=== PATIENT | male | born 1960 | race Native Hawaiian/Other Pacific Islander ===

== ENCOUNTER 2019-03-07 18:46 | Emergency (ER) | payer MEDICARE ==
--- NOTE | 2019-03-07 18:56 | Emergency Department Report ---
Blank Doc - Documentation Documentation: This is a 58-year-old male that presents with left arm pain and swelling. HX of shoulder. Denies any new injuries. This initial assessment/diagnostic orders/clinical plan/treatment(s) is/are subject to change based on patient's health status, clinical progression and re-assessment by fellow clinical providers in the ED. Further treatment and workup at subsequent clinical providers discretion. Patient/guardians urged not to elope from the ED as their condition may be serious if not clinically assessed and managed. Initial orders include: 1- Patient sent to [facility] for further evaluation and treatment 2- doppler US to left arm
[2019-03-07] MEDS ORDERED: IBUPROFEN PO ONE ×2 (18:57→19:00)
[2019-03-07] MEDS ORDERED: PERCOCET 5/325 PO ONE (21:12)
--- NOTE | 2019-03-07 22:48 | XRay Report ---
Left shoulder, 2 views INDICATION: Follow-up fracture FINDINGS: Comminuted fracture of the humeral neck and head with multiple fracture fragments seen with impaction, displacement and rotation. There is no dislocation seen. Ribs and scapula appear to be in tact. Signer Name: Ok Shelton MD Signed: 03/07/2019 10:44 PM Workstation Name: [id number]
--- NOTE | 2019-03-07 22:54 | Emergency Department Report ---
ED Upper Extremity Inj HPI - General Chief Complaint: Extremity Problem,Nontraumatic Stated Complaint: LFT ARM POSS BROKEN/PAIN Time Seen by Provider: 03/07/19 18:53 Source: patient Mode of arrival: Ambulatory Limitations: No Limitations - History of Present Illness Initial Comments: Patient is a 58-year-old male with no past medical history presents to the ED with complaint of worsening left shoulder pain for the last 3 weeks after he slipped on a carpet and fell down on the floor landing on his left arm and shoulder. Patient states that this injury occurred in [facility], and he was initially evaluated at the hospital in [place] and was advised that he had had a fracture of the left shoulder and was to follow-up with the orthopedic surgeon for further evaluation and surgery but the patient states that he lives locally in [facility] and opted to come home to a local orthopedic surgeon. The patient states that in the last 3 weeks he has been taking pain medications which she ran out of. Patient states that the pain has gotten worse in the last 3 days side that he has not been able to sleep patient denies chest pain, shortness of breath, dizziness, neck pain, head or neck injury, back pain, numbness and tingling of left arm, syncope or loss of consciousness. MD Complaint: Injury to:: left, shoulder -: Sudden, week(s) (3) Other Extremity Injury: Shoulder: Left (opain, fractured left shoulder) Other Injuries: none Place: home Severity scale (0 -10): 8 Improves With: none Worsens With: movement of extremity Context: fall, injury Associated Symptoms: denies other symptoms. denies: weakness, numbness, neck pain, suspects foreign body, nausea/vomiting Treatments Prior to Arrival: NSAIDS - Related Data Previous Rx's Medication Instructions Recorded Last Taken Type Cyclobenzaprine [Flexeril] 10 mg PO Q8H PRN #21 tablet 03/07/19 Unknown Rx HYDROcodone/APAP 7.5-325 [Reseda 1 each PO Q6HR PRN 3 Days #12 03/07/19 Unknown Rx 7.5/325] tablet Ibuprofen [Motrin] 600 mg PO Q8H PRN #24 tablet 03/07/19 Unknown Rx Allergies Allergy/AdvReac Type Severity Reaction Status Date / Time No Known Allergies Allergy Unverified 03/07/19 18:50 ED Review of Systems ROS: Stated complaint: LFT ARM POSS BROKEN/PAIN Other details as noted in HPI Constitutional: denies: chills, fever Eyes: denies: eye pain, eye discharge, vision change ENT: denies: ear pain, throat pain Respiratory: denies: cough, shortness of breath, wheezing Cardiovascular: denies: chest pain, palpitations Endocrine: no symptoms reported Gastrointestinal: denies: abdominal pain, nausea, diarrhea Genitourinary: denies: urgency, dysuria Musculoskeletal: arthralgia (right shoulder pain). denies: back pain, joint swelling Skin: denies: rash, lesions Neurological: denies: headache, weakness, numbness, paresthesias, confusion Psychiatric: denies: anxiety, depression Hematological/Lymphatic: denies: easy bleeding, easy bruising ED Past Medical Hx - Past Medical History Previous Medical History?: No - Surgical History Past Surgical History?: Yes Additional Surgical History: Bilateral hip replacements. surgery to left arm. - Social History Smoking Status: Current Some Day Smoker Substance Use Type: None - Medications Home Medications: Home Medications Medication Instructions Recorded Confirmed Last Taken Type Cyclobenzaprine [Flexeril] 10 mg PO Q8H PRN #21 tablet 03/07/19 Unknown Rx HYDROcodone/APAP 7.5-325 [Reseda 1 each PO Q6HR PRN 3 Days #12 03/07/19 Unknown Rx 7.5/325] tablet Ibuprofen [Motrin] 600 mg PO Q8H PRN #24 tablet 03/07/19 Unknown Rx ED Physical Exam - General Limitations: No Limitations General appearance: alert, in no apparent distress - Head Head exam: Present: atraumatic, normocephalic, normal inspection - Eye Eye exam: Present: normal appearance, PERRL, EOMI Pupils: Present: normal accommodation - ENT ENT exam: Present: normal exam, normal orophraynx, mucous membranes moist, TM's normal bilaterally, normal external ear exam - Neck Neck exam: Present: normal inspection, full ROM. Absent: tenderness, lymphadenopathy - Respiratory Respiratory exam: Present: normal lung sounds bilaterally. Absent: respiratory distress, wheezes, rales, rhonchi, stridor, chest wall tenderness, accessory muscle use, decreased breath sounds - Cardiovascular Cardiovascular Exam: Present: regular rate, normal rhythm. Absent: systolic murmur, diastolic murmur, rubs, gallop - GI/Abdominal GI/Abdominal exam: Present: soft, normal bowel sounds. Absent: tenderness, guarding, rebound, hyperactive bowel sounds, hypoactive bowel sounds, organomegaly, mass - Rectal Rectal exam: Present: deferred - Extremities Exam Extremities exam: Present: normal inspection, tenderness (left shoulder severe tenderness, mild deformity mils swelling), normal capillary refill, joint swelling (left shoulder). Absent: full ROM (limited due to pain), calf tenderness - Back Exam Back exam: Present: normal inspection, full ROM. Absent: tenderness, CVA tenderness (R), CVA tenderness (L), muscle spasm, paraspinal tenderness - Neurological Exam Neurological exam: Present: alert, oriented X3, CN II-XII intact, normal gait, reflexes normal - Psychiatric Psychiatric exam: Present: normal affect, normal mood - Skin Skin exam: Present: warm, dry, intact, normal color. Absent: rash ED Course Vital Signs 03/07/19 03/07/19 18:53 21:20 Temperature 98.4 F Pulse Rate 79 Respiratory 18 16 Rate Blood Pressure 148/91 [Left] O2 Sat by Pulse 98 Oximetry - Reevaluation(s) Reevaluation #1: 03/07/19 22:54 This is a 58-year-old male who presented to the ED with worsening left shoulder pain due to a recent fracture in [facility]. In the ED, patient is alert and oriented 3 and is in distress with normal vital signs. A repeat left shoulder x-ray shows a comminuted displaced left humeral head fracture. Physica l exam shows that the patient's left arm is neurovascularly intact. The patient was treated for pain in the ED and the left shoulder was immobilized on arm sling. Patient was discharged home on pain medications and given a referral to the orthopedic surgeon construction representative Dr. Van for follow-up the next day. Patient was advised to contact Dr. Van's office the first thing in the morning to schedule an appointment for follow-up. the patient was advised to return to the ed immediately if symptoms get worse. ED Medical Decision Making - Radiology Data Radiology results: report reviewed, image reviewed Left shoulder x-ray shows a comminuted displaced left humeral head fracture. - Medical Decision Making This is a 58-year-old male who presented to the ED with worsening left shoulder pain due to a recent fracture in [facility]. In the ED, patient is alert and oriented 3 and is in distress with normal vital signs. A repeat left shoulder x-ray shows a comminuted displaced left humeral head fracture. Physical exam shows that the patient's left arm is neurovascularly intact. The patient was treated for pain in the ED and the left shoulder was immobilized on arm sling. Patient was discharged home on pain medications and given a referral to the orthopedic surgeon construction representative Dr. Van for follow-up the next day. Patient was advised to contact Dr. Van's office the first thing in the morning to schedule an appointment for follow-up. the patient was advised to return to the ed immediately if symptoms get worse. - Differential Diagnosis Left shoulder fracture; Left upper arm fracture; arm contusion Critical care attestation.: If time is entered above; I have spent that time in minutes in the direct care of this critically ill patient, excluding procedure time. ED Disposition Clinical Impression: Fracture of humeral head, left, closed Qualifiers: Encounter type: initial encounter Qualified Code(s): S42.292A - Other displaced fracture of upper end of left humerus, initial encounter for closed fracture Contusion of left shoulder Qualifiers: Encounter type: initial encounter Qualified Code(s): S40.012A - Contusion of left shoulder, initial encounter Disposition: - TO HOME OR SELFCARE Is pt being admited?: No Does the pt Need Aspirin: No Condition: Stable Instructions: Arm Fracture in Adults (ED), Shoulder Sprain (ED) Additional Instructions: The medications with food, drink plenty of fluids and follow-up with Dr. Van the orthopedic surgeon construction representative for further evaluation. Contact Dr. Van's office first thing in the morning to schedule an appointment. Return to the ED immediately if symptoms get worse. Prescriptions: Cyclobenzaprine [Flexeril] 10 mg PO Q8H PRN #21 tablet PRN Reason: Muscle Spasm Ibuprofen [Motrin] 600 mg PO Q8H PRN #24 tablet PRN Reason: Pain HYDROcodone/APAP 7.5-325 [Reseda 7.5/325] 1 each PO Q6HR PRN 3 Days #12 tablet PRN Reason: Pain Referrals: MARÍA VAN MD [Staff Physician] - [facility] Time of Disposition: 22:59 Print Language: MEXICAN
[2019-03-07 23:29] VITALS: BP 145/88
== END 2019-03-07 23:24 | disposition home or self-care (01) ==
LOC: ED 18:46
DX: S42.202A Unspecified fracture of upper end of left humerus, initial encounter for closed fracture (principal); S40.012A Contusion of left shoulder, initial encounter; F17.200 Nicotine dependence, unspecified, uncomplicated; W01.0XXA Fall on same level from slipping, tripping and stumbling without subsequent striking against object, initial encounter; Y93.89 Activity, other specified; Y92.89 Other specified places as the place of occurrence of the external cause; Y99.8 Other external cause status